=== PATIENT | male | born 1980 | race African-American/Black ===

== ENCOUNTER 2024-07-29 00:26 | Emergency (ER) | payer MEDICAID, OTHER ==
[~2024-07-29] VITALS: Ht 172.7 cm; Wt 109.0 kg
[2024-07-29 00:29] VITALS: O2SAT 100
[2024-07-29] MEDS ORDERED: METHYLPREDNISOLONE SOD SUCC 125MG/2ML (ACT-O-VIAL) IM STA (02:35)
[2024-07-29] MEDS ORDERED: DIPHENHYDRAMINE 50MG CAPSULE PO ONE (02:45)
[2024-07-29] MEDS: METHYLPREDNISOLONE SOD SUCC 125MG/2ML (ACT-O-VIAL) IM NR (03:24)
[2024-07-29] MEDS: DIPHENHYDRAMINE 25MG CAPSULE PO NR (03:24)
[2024-07-29] MEDS ORDERED: P50 MT (04:02)
[2024-07-29] MEDS ORDERED: DIPH25CA83 MT (04:02)
[2024-07-29 04:15] VITALS: BP 126/71; PULSE 58; RESP 18; TEMP 36.66960; O2SAT 100
== END 2024-07-29 04:30 | disposition home or self-care (01) ==
LOC: ER 00:26
DX: T78.40XA Allergy, unspecified, initial encounter (principal); Z88.8 Allergy status to other drugs, medicaments and biological substances; X58.XXXA Exposure to other specified factors, initial encounter
CPT/HCPCS: 96372; 99283; Q0163; J2919; Z7610 ×2

== ENCOUNTER 2024-08-01 05:38 | Emergency (ER) | payer MEDICAID ==
[~2024-08-01] VITALS: Ht 188 cm; Wt 106.7 kg
[~2024-08-01 05:38] MED LIST: DIPH25CA83 MT; P50 MT
[2024-08-01 05:41] VITALS: BP 168/98; RESP 19; TEMP 98.6; O2SAT 99
[2024-08-01 05:44] VITALS: PULSE 77; O2SAT 99
== END 2024-08-01 07:50 | disposition left against medical advice (07) ==
LOC: ER 06:06
DX: R21 Rash and other nonspecific skin eruption (principal); Z53.21 Procedure and treatment not carried out due to patient leaving prior to being seen by health care provider

== ENCOUNTER 2024-08-04 09:12 | Emergency (ER) | payer MEDICAID ==
[~2024-08-04] VITALS: Ht 188 cm; Wt 99.0 kg
[2024-08-04 09:15] VITALS: BP 164/105; TEMP 98.7; O2SAT 100
[2024-08-04 09:18] VITALS: PULSE 96; RESP 18; O2SAT 96
== END 2024-08-04 13:05 | disposition left against medical advice (07) ==
LOC: ER 09:12
DX: Z76.0 Encounter for issue of repeat prescription (principal); Z53.21 Procedure and treatment not carried out due to patient leaving prior to being seen by health care provider

== ENCOUNTER 2024-08-06 19:03 | Emergency (ER) | payer MEDICAID ==
[~2024-08-06] VITALS: Ht 188 cm; Wt 93.0 kg
[2024-08-06 19:40] VITALS: O2SAT 100
[2024-08-06] MEDS ORDERED: HYDR99LO MT (20:51)
[2024-08-06] MEDS ORDERED: DIPH25CA83 MT (20:51)
[2024-08-06] MEDS ORDERED: P50 MT (20:51)
[2024-08-06 21:05] VITALS: BP 140/92; PULSE 68; RESP 17; TEMP 36.61404; O2SAT 100
[2024-08-06] MEDS: METHYLPREDNISOLONE SOD SUCC 125MG/2ML (ACT-O-VIAL) IM ONE (21:06)
== END 2024-08-06 21:11 | disposition home or self-care (01) ==
LOC: ER 19:03
DX: L20.9 Atopic dermatitis, unspecified (principal); R21 Rash and other nonspecific skin eruption; Z79.899 Other long term (current) drug therapy
CPT/HCPCS: 99283; 96372; J2919

== ENCOUNTER 2024-08-10 08:40 | Emergency (ER) | payer MEDICAID ==
[~2024-08-10] VITALS: Ht 188 cm; Wt 100.0 kg
[~2024-08-10 08:40] MED LIST changes: +HYDR99LO MT
[2024-08-10 08:59] VITALS: BP 159/96; PULSE 86; RESP 18; TEMP 97.8; O2SAT 98
[2024-08-10] MEDS ORDERED: CETI10CA2 MT (09:21)
[2024-08-10] MEDS ORDERED: DIPH-954 MT (09:21)
[2024-08-10] MEDS ORDERED: DIPHENHYDRAMINE 50MG CAPSULE PO ONE (09:30)
[2024-08-10] MEDS: DIPHENHYDRAMINE 25MG CAPSULE PO NR (09:59)
== END 2024-08-10 10:13 | disposition home or self-care (01) ==
LOC: ER 08:40
DX: L50.9 Urticaria, unspecified (principal)
CPT/HCPCS: 99282; Q0163

== ENCOUNTER 2024-09-13 20:15 | Emergency (ER) | payer MEDICAID ==
[~2024-09-13] VITALS: Ht 190.5 cm; Wt 101.0 kg
[~2024-09-13 20:15] MED LIST changes: +CETI10CA2 MT; +DIPH-954 MT
[2024-09-13 20:18] VITALS: O2SAT 98
[2024-09-13 21:08] VITALS: BP 152/90; PULSE 100; RESP 18; O2SAT 100
== END 2024-09-13 22:45 | disposition left against medical advice (07) ==
LOC: ER 20:15
DX: R50.9 Fever, unspecified (principal); R05.9 Cough, unspecified; R42 Dizziness and giddiness; Z53.21 Procedure and treatment not carried out due to patient leaving prior to being seen by health care provider

== ENCOUNTER 2024-09-18 00:56 | Emergency (ER) | payer MEDICAID ==
[~2024-09-18] VITALS: Ht 190.5 cm; Wt 103.0 kg
[2024-09-18 01:23] VITALS: TEMP 37.00296
[2024-09-18 01:26] VITALS: TEMP 98.6; O2SAT 99
[2024-09-18] MEDS ORDERED: P50 MT (01:30)
[2024-09-18] MEDS ORDERED: DIPH25CA83 MT (01:30)
[2024-09-18] MEDS ORDERED: DIPHENHYDRAMINE 50MG CAPSULE PO ONE (01:30)
[2024-09-18 02:38] VITALS: BP 123/70; PULSE 62; RESP 15; O2SAT 98
[2024-09-18] MEDS: PREDNISONE 20MG TABLET PO ONE (02:38)
[2024-09-18] MEDS: DIPHENHYDRAMINE 25MG CAPSULE PO NR (02:38)
== END 2024-09-18 02:39 | disposition home or self-care (01) ==
LOC: ER 00:56
DX: R21 Rash and other nonspecific skin eruption (principal); Z79.899 Other long term (current) drug therapy
CPT/HCPCS: 99283; Q0163; J7512

== ENCOUNTER 2024-10-02 15:29 | Emergency (ER) | payer BC, MEDICAID ==
[~2024-10-02] VITALS: Ht 188 cm; Wt 98.0 kg
[2024-10-02 15:33] VITALS: O2SAT 98
[2024-10-02 15:47] VITALS: BP 125/77; PULSE 81; RESP 16; TEMP 98; O2SAT 100
[2024-10-02] MEDS ORDERED: IBUP-2029 MT (17:56)
[2024-10-02] MEDS ORDERED: CLIN-116 MT (17:56)
[2024-10-02] MEDS: CLINDAMYCIN HCL 150MG CAPSULE PO ONE (18:25)
[2024-10-02] MEDS: IBUPROFEN 600MG TABLET PO ONE (18:25)
== END 2024-10-02 18:32 | disposition home or self-care (01) ==
LOC: ER 15:29
DX: R68.84 Jaw pain (principal); K08.89 Other specified disorders of teeth and supporting structures; Z79.899 Other long term (current) drug therapy
CPT/HCPCS: 99283

== ENCOUNTER 2024-10-30 05:08 | Emergency (ER) | payer BC, MEDICAID ==
[~2024-10-30] VITALS: Ht 190.5 cm; Wt 104.0 kg
[~2024-10-30 05:08] MED LIST changes: +CLIN-116 MT; +IBUP-2029 MT
[2024-10-30 05:23] VITALS: O2SAT 99
[2024-10-30] MEDS ORDERED: DIPHENHYDRAMINE 50MG CAPSULE PO ONE (05:30)
[2024-10-30] MEDS: METHYLPREDNISOLONE SOD SUCC 125MG/2ML (ACT-O-VIAL) IM ONE (05:39)
[2024-10-30] MEDS: DIPHENHYDRAMINE 25MG CAPSULE PO NR (05:39)
[2024-10-30 05:44] VITALS: BP 151/92; PULSE 99; RESP 18; TEMP 36.6; O2SAT 99
== END 2024-10-30 05:44 | disposition home or self-care (01) ==
LOC: ER 05:08
DX: T78.40XA Allergy, unspecified, initial encounter (principal); Z79.899 Other long term (current) drug therapy; X58.XXXA Exposure to other specified factors, initial encounter
CPT/HCPCS: 99283; 96372; J2919; Q0163